=== PATIENT | male | born 1970 | race African-American/Black ===

== ENCOUNTER 2017-10-05 16:50 | Observation (INO) | payer OTHER ==
[2017-10-05 17:46] LABS: Troponin I Less than 0.010 ng/mL (< 0.028)
[2017-10-05 20:42] LABS: Troponin I Less than 0.010 ng/mL (< 0.028)
[2017-10-05] MEDS ORDERED: Ondansetron HCl/PF 4 MG/2 ML Vial IVP PRN (21:23)
[2017-10-05] MEDS ORDERED: Acetaminophen 325 MG TAB PO PRN (21:23)
[2017-10-05] MEDS ORDERED: Ondansetron ODT 4 MG TAB SL PRN (21:23)
[2017-10-05 21:37] VITALS: BMI 39.1
[2017-10-05 23:44] LABS: Troponin I 0.016 ng/mL (< 0.028)
--- NOTE | 2017-10-06 06:23 | HP ---
CHIEF COMPLAINT: Chest pain. HISTORY OF PRESENT ILLNESS: Patient is a 47-year-old male who [facility] in [place] complaining of chest pain that had already resolved by the time he presente d. The pain was in the substernal area described as 6/10, dull aching sensation. It was generally m ore gradual onset and had been somewhat intermittent, lasting very briefly. Currently, the patient r emains completely pain free. He has had no symptoms like this in the past. He has had no prior card iac evaluation. REVIEW OF SYSTEMS: Negative, and 11-point system reviewed. The patient had reported some upper resp iratory symptoms apparently to the ER physician, but denied that specifically when asked here. PAST MEDICAL HISTORY: Notable for hernia repair and testicular surgery. FAMILY HISTORY: Reports of father with hypertension and diabetes and his son with diabetes. SOCIAL HISTORY: The patient drinks socially and smokes cigarettes socially. He denies drug use, [place] he did admit to using cocaine over the weekend. States he does not do that with any regularity . ALLERGIES: None. MEDICATIONS: None. PHYSICAL EXAMINATION: VITAL SIGNS: Temperature is 98, pulse 62, BP 129/60, respirations 18, O2 sat 99% on room air. GENERAL APPEARANCE: Age appropriate male, morbidly obese, no distress. He is asleep, easily awakens . HEENT: PERRL. No OP lesions. NECK: Supple and symmetric. CARDIOVASCULAR: Regular rate and rhythm without murmurs, gallops, or rubs. LUNGS: Clear to auscultation bilaterally with good chest wall expansion and air exchange. ABDOMEN: Soft, nontender, nondistended with positive bowel sounds. No masses, no organomegaly. EXTREMITIES: Warm and dry with no edema. NEUROLOGIC: The patient has no focal deficits. LABORATORY AND DIAGNOSTIC DATA: White count 3.9, hemoglobin 13.6, platelets 241,000. He has 36% andreas trophils, 58% lymphocytes. Sodium 139, potassium 3.8, chloride 110, CO2 of 17, BUN 13, creatinine is 1.08, glucose 126. Troponin negative x4. BNP 27. Albumin 4.1. Urinalysis is negative. Toxicolog y screen positive for cocaine and marijuana. EKG shows a sinus rhythm with minimal T-wave change, bu t certainly not nondiagnostic. Chest x-ray negative. IMPRESSION AND PLAN: Chest pain. The patient has a history of using cocaine and apparently some mar ijuana as well. The patient is morbidly obese and has some intermittent smoking so far between the t agustinsfer from the original presentation at the [place] [facility], through our emergency room and admission, he has had a full set of negative troponins. We will set him up for a stress test in the morning. If that is negative, the patient can likely be discharged and advised to discontinue t he drug use. If it is positive, we will consult Cardiology. DISPOSITION: The patient's will be his surrogate decision maker should that be necessary and he is FULL CODE.
--- NOTE | 2017-10-06 12:15 | NM ---
CARDIAC SPECT: HISTORY: A 47-year-old male with chest pain. TECHNIQUE: A stress only myocardial perfusion scan is performed following the intravenous administration of 32 m illicuries of technetium 99m sestamibi. Exercise stress was monitored and interpreted by Dr. Angely chan. FINDINGS: A homogeneous tracer distribution is seen the myocardial segments on the post stress images. GATED SPECT LVEF: 61%. WALL MOTION EXAM: Normal. IMPRESSION: Normal post stress myocardial perfusion scan. POS: TYRELL
[2017-10-06 16:07] VITALS: BP 135/77; TEMP 98.1
--- NOTE | 2017-10-06 20:31 | DIS ---
DISCHARGE DIAGNOSES: 1. Chest pain, likely secondary to cocaine use. 2. Polysubstance use, including cocaine and marijuana. 3. Morbid obesity. HOSPITAL COURSE: This is a 47-year-old male who initially presented with a chief complaint of subste rnal chest pain. Please see the original history and physical. Since admission, he has not endorsed any recurrence of this substernal chest pain. Patient did admit to using cocaine over the weekend p receding his chest discomfort. Patient underwent a stress test which was essentially negative. Ariadna ent has been hemodynamically stable and is being discharged home. Polysubstance abuse counseling was provided for the patient and he contemplative of cessation. Remainder of the patient's chronic medi roma issues have remained unchanged during this hospitalization. MEDICATION RECONCILIATION: None. Patient does not take any home medication and is not discharged on any home medications at this point in time. PATIENT'S CONDITION AT DISCHARGE: At the time of discharge, the patient's vital signs are stable. H e is able to complete his baseline ADLs and is tolerating his baseline diet and activity. DISCHARGE AND FOLLOWUP INSTRUCTIONS: The patient has been asked to follow up closely with a PCP. Th e patient states he has gone to [facility] before and is amenable to returning there for a primary c are. Polysubstance abuse cessation reviewed as per above. Thank you for asking me to care for the patient. Questions or concerns, please contact me at [facility].
== END 2017-10-06 16:37 | disposition home or self-care (01) ==
LOC: ERS 16:50 → 2SW 21:09
PROVIDERS: ADMIT Family Medicine; ATTEND Family Medicine
DX: R07.2 Precordial pain (principal); F17.210 Nicotine dependence, cigarettes, uncomplicated; F12.10 Cannabis abuse, uncomplicated; F14.10 Cocaine abuse, uncomplicated; E66.01 Morbid (severe) obesity due to excess calories; Z68.39 Body mass index [BMI] 39.0-39.9, adult
CPT/HCPCS: 36415; 78452; 93005; 93017; 94760; A4216; A9500; G0378